=== PATIENT | female | born 1955 | race African-American/Black ===

== ENCOUNTER 2021-05-14 06:27 | Emergency (ER) | payer MEDICAID ==
[~2021-05-14] VITALS: Ht 167.6 cm; Wt 64.0 kg
[2021-05-14] MEDS ORDERED: IPRATROPIUM BROMIDE (0.02%) 0.5MG/2.5ML NEB HHN STA (07:35)
[2021-05-14] MEDS ORDERED: ALBUTEROL (0.083%) 2.5MG/3ML NEB HHN STA (07:35)
[2021-05-14] MEDS ORDERED: METHYLPREDNISOLONE SOD SUCC 125 MG/2 ML VIAL IV ONE (07:45)
[2021-05-14 08:30] LABS: BASOPHILS % 0.3 % (0.0-2.0); EOSINOPHILS % 6.9 % (0.0-5.0); HEMATOCRIT. 32.8 % (36.0-48.0); HEMOGLOBIN. 10.5 g/dL (12.0-16.0); LYMPHOCYTES % 32.9 % (20.0-50.0); MEAN CORPUSCULAR HEMOGLOBIN 21.7 pg (28.0-32.0); MEAN CORPUSCULAR VOLUME 67.5 fL (81.0-99.0); MEAN PLATELET VOLUME 9.2 fl (7.4-10.4); NEUTROPHILS % 48.9 % (40.0-76.0); PLATELET 157 x1000/uL (130-400); RED BLOOD CELL COUNT 4.86 mill/uL (4.2-5.4); RED CELL DISTRIBUTION WIDTH 19.5 % (11.6-14.6)
[2021-05-14] MEDS ORDERED: LEVOFLOXACIN 750MG PREMIX 150 ML IV ONE (08:30)
[2021-05-14 08:37] LABS: CHLORIDE 112 mEq/L (98-107)
[2021-05-14] MEDS ORDERED: POTASSIUM CHLORIDE 20MEQ TABLET SR PO NR (09:15)
[2021-05-14 09:16] LABS: PLATELET ESTIMATE NORMAL
[2021-05-14 09:28] LABS: D-DIMER 0.78 mg/L FEU (<0.50); PROTHROMBIN TIME 10.7 sec (9.6-11.0)
[2021-05-14 10:14] LABS: BG BASE EXCESS 2.2 mmol/L (-2.0-2.0); BG CARBOXYHEMOGLOBIN 0.9 % (0.5-1.5); BG FRACTION INSPIRED OXYGEN 60; BG HCO3 ACT 27.5 mmol/L (22.0-26.0); BG METHEMOGLOBIN 0.3 % (0.0-1.5); BG OXYHEMOGLOBIN 97.8 % (94.0-97.0); BG PCO2 46.2 mmHg (35.0-45.0); BG PH 7.393 (7.350-7.450); BG PO2 155.9 mmHg (75.0-100.0); BG SAMPLE SITE RIGHT RADIAL; BG TOTAL HEMOGLOBIN 10.8 g/dL (12.0-18.0); BG VENT MODE HHN
[2021-05-14] MEDS ORDERED: IOHEXOL-350 100 ML BOTTLE ONE (11:08)
[2021-05-14 11:53] VITALS: BP 132/49
== END 2021-05-14 12:10 | disposition short-term general hospital (02) ==
LOC: ER 06:27
DX: J44.1 Chronic obstructive pulmonary disease with (acute) exacerbation (principal); Z20.822 Contact with and (suspected) exposure to COVID-19; I10 Essential (primary) hypertension; E11.9 Type 2 diabetes mellitus without complications
CPT/HCPCS: 36415; 36600; 71045; 71275; 80053; 82375; 82805; 82962; 83880; 84484; 85025; 85379; 85610; 93005; 94640; 96365; 96366; 96375; 99285; C9803; J1956; J2930; Q9967; U0003; U0005; Z7610

== ENCOUNTER 2021-06-16 07:45 | Emergency (ER) | payer MEDICAID, OTHER ==
[~2021-06-16] VITALS: Ht 157.5 cm; Wt 60.0 kg
[2021-06-16 07:50] VITALS: BP 158/80
[2021-06-16] MEDS ORDERED: METHYLPREDNISOLONE SOD SUCC 125 MG/2 ML VIAL IV STA (08:31)
[2021-06-16] MEDS ORDERED: ALBUTEROL (0.083%) 2.5MG/3ML NEB HHN STA (08:31)
[2021-06-16] MEDS ORDERED: IPRATROPIUM BROMIDE (0.02%) 0.5MG/2.5ML NEB HHN STA (08:31)
[2021-06-16 08:37] LABS: BASOPHILS % 0.7 % (0.0-2.0); EOSINOPHILS % 5.4 % (0.0-5.0); HEMATOCRIT. 39.5 % (36.0-48.0); HEMOGLOBIN. 12.6 g/dL (12.0-16.0); LYMPHOCYTES % 46.6 % (20.0-50.0); MEAN CORPUSCULAR HEMOGLOBIN 22.4 pg (28.0-32.0); MEAN CORPUSCULAR VOLUME 70.4 fL (81.0-99.0); MEAN PLATELET VOLUME 9.1 fl (7.4-10.4); MONOCYTES % 9.7 % (2.0-8.0); NEUTROPHILS % 37.6 % (40.0-76.0); PLATELET 280 x1000/uL (130-400); RED BLOOD CELL COUNT 5.61 mill/uL (4.2-5.4); RED CELL DISTRIBUTION WIDTH 20.8 % (11.6-14.6)
[2021-06-16 08:45] LABS: CHLORIDE 112 mEq/L (98-107)
[2021-06-16] MEDS ORDERED: ALBU6.7H9 INH (09:13)
[2021-06-16] MEDS ORDERED: P20 MT (09:13)
== END 2021-06-16 10:39 | disposition home or self-care (01) ==
LOC: ER 07:45
DX: J44.1 Chronic obstructive pulmonary disease with (acute) exacerbation (principal); I10 Essential (primary) hypertension; E11.9 Type 2 diabetes mellitus without complications; R74.8 Abnormal levels of other serum enzymes; Z88.0 Allergy status to penicillin; Z79.899 Other long term (current) drug therapy; Z87.891 Personal history of nicotine dependence
CPT/HCPCS: 36415; 71045; 80053; 83880; 84484; 85025; 93005; 94640; 96374; 99285; J2930; Z7610

== ENCOUNTER 2021-07-09 10:21 | Emergency (ER) | payer MEDICAID, OTHER ==
[~2021-07-09] VITALS: Ht 165.1 cm; Wt 65.0 kg
[~2021-07-09 10:21] MED LIST: ALBU6.7H9 INH; P20 MT
[2021-07-09 10:56] VITALS: BP 146/68
[2021-07-09] MEDS ORDERED: ALBU6.7H9 INH (11:02)
[2021-07-09] MEDS ORDERED: ALBU05 NEB (11:02)
== END 2021-07-09 11:35 | disposition home or self-care (01) ==
LOC: ER 10:21
DX: Z76.0 Encounter for issue of repeat prescription (principal); I10 Essential (primary) hypertension; J44.9 Chronic obstructive pulmonary disease, unspecified
CPT/HCPCS: 93005; 99283

== ENCOUNTER 2021-08-03 08:39 | Emergency (ER) | payer MEDICAID ==
[~2021-08-03] VITALS: Ht 167.6 cm; Wt 54.0 kg
[~2021-08-03 08:39] MED LIST changes: +ALBU05 NEB
[2021-08-03] MEDS ORDERED: IPRATROPIUM BROMIDE (0.02%) 0.5MG/2.5ML NEB HHN ONE (09:30)
[2021-08-03] MEDS ORDERED: ALBUTEROL (0.083%) 2.5MG/3ML NEB HHN ONE (09:30)
[2021-08-03] MEDS ORDERED: PREDNISONE 20MG TABLET PO ONE (09:30)
[2021-08-03] MEDS ORDERED: ALBU6.7H9 INH (11:40)
[2021-08-03] MEDS ORDERED: P20 MT (11:40)
[2021-08-03 12:00] VITALS: BP 138/76
== END 2021-08-03 12:00 | disposition home or self-care (01) ==
LOC: ER 08:39
DX: J44.1 Chronic obstructive pulmonary disease with (acute) exacerbation (principal); Z88.0 Allergy status to penicillin; Z88.2 Allergy status to sulfonamides
CPT/HCPCS: 71045; 94640; 99283; J7512; Z7610

== ENCOUNTER 2021-08-21 08:47 | Inpatient (IN) | payer MEDICARE, MEDICAID ==
[~2021-08-21] VITALS: Ht 160 cm; Wt 62.6 kg
[2021-08-21] MEDS ORDERED: IPRATROPIUM BROMIDE (0.02%) 0.5MG/2.5ML NEB HHN STA (09:15)
[2021-08-21] MEDS ORDERED: PREDNISONE 20MG TABLET PO STA (09:15)
[2021-08-21] MEDS ORDERED: ALBUTEROL (0.083%) 2.5MG/3ML NEB HHN STA (09:15)
[2021-08-21 09:36] LABS: BASOPHILS % 0.8 % (0.0-2.0); EOSINOPHILS % 6.3 % (0.0-5.0); HEMATOCRIT. 44.4 % (36.0-48.0); HEMOGLOBIN. 13.5 g/dL (12.0-16.0); MEAN CORPUSCULAR VOLUME 72.1 fL (81.0-99.0); MONOCYTES % 10.1 % (2.0-8.0); NEUTROPHILS % 49.8 % (40.0-76.0); RED BLOOD CELL COUNT 6.15 mill/uL (4.2-5.4); RED CELL DISTRIBUTION WIDTH 19.2 % (11.6-14.6)
[2021-08-21 09:41] LABS: CHLORIDE 113 mEq/L (98-107)
[2021-08-21 09:44] LABS: PROTHROMBIN TIME 10.3 sec (9.6-11.0)
[2021-08-21] MEDS ORDERED: AZITHROMYCIN 500MG/250ML 250 ML IV NR (12:45)
[2021-08-21] MEDS ORDERED: AZITHROMYCIN 500 MG in DEXT 5% WATER 250 ML IV SCH (12:45)
[2021-08-21] MEDS ORDERED: GUAIFENESIN-DM 200MG-20MG/10ML UDC PO ONE (15:30)
[2021-08-21 21:20] VITALS: BP 151/73
[2021-08-22 00:13] VITALS: BP 150/65
[2021-08-22 04:00] VITALS: BP 137/67
[2021-08-22] MEDS ORDERED: ACETAMINOPHEN 325MG TABLET PO PRN ×3 (05:15→07:45)
[2021-08-22] MEDS ORDERED: CLONIDINE 0.1MG TABLET PO PRN (05:15)
[2021-08-22] MEDS: METHYLPREDNISOLONE SOD SUCC 125 MG/2 ML VIAL IV SCH ×4 (05:36→23:52)
[2021-08-22] MEDS: GUAIFENESIN 200MG/10ML SUGAR FREE UDC PO PRN ×3 (05:41→19:03)
[2021-08-22] MEDS ORDERED: PANTOPRAZOLE 40MG DR TABLET PO SCH (07:20)
[2021-08-22] MEDS ORDERED: DOCUSATE SODIUM 100MG CAPSULE PO PRN (07:45)
[2021-08-22] MEDS ORDERED: ZOLPIDEM TARTRATE 5MG TABLET PO PRN (07:45)
[2021-08-22] MEDS ORDERED: ONDANSETRON HCL 4MG/2ML INJ IV PRN (07:45)
[2021-08-22] MEDS ORDERED: ENOXAPARIN 40MG/0.4ML SYR SUBCUT SCH (07:45)
[2021-08-22] MEDS ORDERED: NITROGLYCERIN 0.4MG TABLET SL SL PRN (07:45)
[2021-08-22 08:00] VITALS: BP 135/78
[2021-08-22] MEDS: ASPIRIN 325MG EC TABLET PO SCH (09:41)
[2021-08-22] MEDS: ZINC SULFATE 220 MG ( 50 ) CAPSULE PO SCH (09:41)
[2021-08-22] MEDS: ASCORBIC ACID 500 MG TABLET PO SCH ×2 (09:42→20:31)
[2021-08-22] MEDS: FAMOTIDINE 20MG TABLET PO SCH ×2 (09:42→20:31)
[2021-08-22] MEDS: LEVOFLOXACIN 500MG TABLET PO SCH (09:42)
[2021-08-22] MEDS: ENOXAPARIN 40MG/0.4ML SYR SUBCUT SCH (09:47)
[2021-08-22 11:45] LABS: *AMPHETAMINES SCREEN URINE NEGATIVE (NEGATIVE); *BARBITURATES SCREEN URINE NEGATIVE (NEGATIVE); *BENZODIAZEPINES SCREEN URINE NEGATIVE (NEGATIVE); *COCAINE SCREEN URINE PRESUMTIVE POSITIVE (NEGATIVE); METHADONE URINE SCREEN NEGATIVE (NEGATIVE); OPIATES URINE SCREEN NEGATIVE (NEGATIVE)
[2021-08-22 11:46] LABS: CANNABINOID URINE SCREEN NEGATIVE (NEGATIVE); PHENCYCLIDINE URINE SCREEN NEGATIVE (NEGATIVE)
[2021-08-22 12:16] VITALS: BP 147/74
[2021-08-22 16:00] VITALS: BP 140/66
[2021-08-22] MEDS: IPRATROPIUM/ALBUTEROL 0.5-3(2.5)MG/3ML NEB HHN SCH ×2 (16:13→21:23)
[2021-08-22 16:44] LABS: CREATINE KINASE 32 IU/L (26-192)
[2021-08-22 16:51] LABS: CREATINE KINASE MB FRACTION 2.8 ng/mL (0.5-3.6)
[2021-08-22 20:00] VITALS: BP 144/65
[2021-08-22] MEDS: THROAT LOZENGES-BENZOCAINE/MENTH/CETYLPYRD CL LOZENGES MM PRN (23:53)
[2021-08-23] VITALS (7 sets, daily range): BP systolic 120–159; BP diastolic 52–83
[2021-08-23] MEDS: IPRATROPIUM/ALBUTEROL 0.5-3(2.5)MG/3ML NEB HHN SCH ×6 (00:30→21:09)
[2021-08-23] MEDS: GUAIFENESIN 200MG/10ML SUGAR FREE UDC PO PRN ×3 (02:20→17:10)
[2021-08-23 02:22] LABS: CREATINE KINASE 24 IU/L (26-192); CREATINE KINASE MB FRACTION 2.2 ng/mL (0.5-3.6)
[2021-08-23] MEDS: METHYLPREDNISOLONE SOD SUCC 125 MG/2 ML VIAL IV SCH ×3 (05:55→17:18)
[2021-08-23] MEDS: THROAT LOZENGES-BENZOCAINE/MENTH/CETYLPYRD CL LOZENGES MM PRN ×2 (06:30→17:10)
[2021-08-23 06:55] LABS: BASOPHILS % 0.3 % (0.0-2.0); HEMATOCRIT. 41.4 % (36.0-48.0); HEMOGLOBIN. 12.8 g/dL (12.0-16.0); LYMPHOCYTES % 7.9 % (20.0-50.0); MEAN CORPUSCULAR HEMOGLOBIN 22.1 pg (28.0-32.0); MEAN CORPUSCULAR VOLUME 71.2 fL (81.0-99.0); MEAN PLATELET VOLUME 9.8 fl (7.4-10.4); MONOCYTES % 2.8 % (2.0-8.0); PLATELET 250 x1000/uL (130-400); RED BLOOD CELL COUNT 5.81 mill/uL (4.2-5.4); RED CELL DISTRIBUTION WIDTH 19.2 % (11.6-14.6)
[2021-08-23 07:22] LABS: PHOSPHORUS 3.6 mg/dL (2.5-4.9)
[2021-08-23] MEDS: ENOXAPARIN 40MG/0.4ML SYR SUBCUT SCH (09:16)
[2021-08-23] MEDS: LEVOFLOXACIN 500MG TABLET PO SCH (09:16)
[2021-08-23] MEDS: ZINC SULFATE 220 MG ( 50 ) CAPSULE PO SCH (09:16)
[2021-08-23] MEDS: FAMOTIDINE 20MG TABLET PO SCH (09:16)
[2021-08-23] MEDS: ASCORBIC ACID 500 MG TABLET PO SCH ×2 (09:16→20:46)
[2021-08-23] MEDS: ASPIRIN 325MG EC TABLET PO SCH (09:16)
[2021-08-23] MEDS: MAGNESIUM/ALUMINUM HYDROXIDE/SIMETHICONE 30ML UDC PO PRN (20:46)
[2021-08-23] MEDS: KETOROLAC 15MG/ML VIAL IV PRN (20:48)
[2021-08-24] MEDS: METHYLPREDNISOLONE SOD SUCC 125 MG/2 ML VIAL IV SCH ×4 (00:49→16:50)
[2021-08-24] MEDS: IPRATROPIUM/ALBUTEROL 0.5-3(2.5)MG/3ML NEB HHN SCH ×6 (00:54→20:05)
[2021-08-24] MEDS: MAGNESIUM/ALUMINUM HYDROXIDE/SIMETHICONE 30ML UDC PO PRN ×3 (01:40→18:32)
[2021-08-24 04:00] VITALS: BP 167/73
[2021-08-24] MEDS: CLONIDINE 0.1MG TABLET PO PRN ×2 (05:23→16:51)
[2021-08-24] MEDS: KETOROLAC 15MG/ML VIAL IV PRN ×3 (06:23→19:46)
[2021-08-24 08:00] VITALS: BP 140/54
[2021-08-24] MEDS: ASCORBIC ACID 500 MG TABLET PO SCH ×2 (08:24→21:35)
[2021-08-24] MEDS: ENOXAPARIN 40MG/0.4ML SYR SUBCUT SCH (08:24)
[2021-08-24] MEDS: ZINC SULFATE 220 MG ( 50 ) CAPSULE PO SCH (08:24)
[2021-08-24] MEDS: FAMOTIDINE 20MG TABLET PO SCH (08:24)
[2021-08-24] MEDS: LEVOFLOXACIN 500MG TABLET PO SCH (08:24)
[2021-08-24] MEDS: ASPIRIN 325MG EC TABLET PO SCH (08:24)
[2021-08-24 12:00] VITALS: BP 135/68
[2021-08-24 16:00] VITALS: BP 165/89
[2021-08-24] MEDS: TRAMADOL 50MG TABLET PO PRN ×2 (16:43→18:32)
[2021-08-24 19:41] VITALS: BP 160/66
[2021-08-25] VITALS: BP 128/62
[2021-08-25] MEDS: IPRATROPIUM/ALBUTEROL 0.5-3(2.5)MG/3ML NEB HHN SCH ×4 (00:02→12:36)
[2021-08-25] MEDS: METHYLPREDNISOLONE SOD SUCC 125 MG/2 ML VIAL IV SCH ×2 (00:59→06:29)
[2021-08-25] MEDS: TRAMADOL 50MG TABLET PO PRN ×3 (01:06→11:31)
[2021-08-25 01:19] LABS: FOLIC ACID (FOLATE) SERUM 10.5 ng/mL (>5.38)
[2021-08-25 04:00] VITALS: BP 110/51
[2021-08-25] MEDS: KETOROLAC 15MG/ML VIAL IV PRN ×2 (06:29→13:06)
[2021-08-25] MEDS: MAGNESIUM/ALUMINUM HYDROXIDE/SIMETHICONE 30ML UDC PO PRN ×2 (06:34→13:18)
[2021-08-25 08:00] VITALS: BP 157/64
[2021-08-25] MEDS: ASPIRIN 325MG EC TABLET PO SCH (09:02)
[2021-08-25] MEDS: FAMOTIDINE 20MG TABLET PO SCH (09:02)
[2021-08-25] MEDS: ASCORBIC ACID 500 MG TABLET PO SCH (09:02)
[2021-08-25] MEDS: ZINC SULFATE 220 MG ( 50 ) CAPSULE PO SCH (09:02)
[2021-08-25] MEDS: LEVOFLOXACIN 500MG TABLET PO SCH (09:02)
[2021-08-25] MEDS: ENOXAPARIN 40MG/0.4ML SYR SUBCUT SCH (09:04)
[2021-08-25 11:11] VITALS: BP 157/64
[2021-08-25] MEDS: THROAT LOZENGES-BENZOCAINE/MENTH/CETYLPYRD CL LOZENGES MM PRN (11:28)
[2021-08-25] MEDS: GUAIFENESIN 200MG/10ML SUGAR FREE UDC PO PRN (11:28)
== END 2021-08-25 14:53 | disposition home or self-care (01) | DRG 189 ==
LOC: ER 08:47 → EDBEDREQTM 14:15 → EDBEDREQ 14:15 → ENRESERV 20:41 → 6WST 21:17
PROVIDERS: ADMIT Internal Medicine; ATTEND Internal Medicine
DX: J96.01 Acute respiratory failure with hypoxia (principal); J44.1 Chronic obstructive pulmonary disease with (acute) exacerbation; E44.0 Moderate protein-calorie malnutrition; N18.9 Chronic kidney disease, unspecified; F17.210 Nicotine dependence, cigarettes, uncomplicated; Z20.822 Contact with and (suspected) exposure to COVID-19; Z88.0 Allergy status to penicillin; Z88.2 Allergy status to sulfonamides; Z88.8 Allergy status to other drugs, medicaments and biological substances; Z79.899 Other long term (current) drug therapy; Z79.51 Long term (current) use of inhaled steroids; Z68.24 Body mass index [BMI] 24.0-24.9, adult
CPT/HCPCS: 36415; 71045; 80053; 80061; 80305; 82550; 82553; 82607; 82728; 82746; 83036; 83540; 83550; 83735; 84100; 84484; 85025; 87426; 93005; 93306; 93970; 94640; 94644; 97161; 97166; 99285; J0456; J1650; J1885; J2405; J2930; J7060; J7512

== ENCOUNTER 2021-08-28 02:25 | Emergency (ER) | payer MEDICARE, MEDICAID ==
[~2021-08-28] VITALS: Ht 167.6 cm; Wt 50.0 kg
[2021-08-28] MEDS ORDERED: ONDANSETRON HCL 4MG/2ML INJ IV STA (03:01)
[2021-08-28] MEDS ORDERED: MAGNESIUM/ALUMINUM HYDROXIDE/SIMETHICONE 30ML UDC PO STA (03:01)
[2021-08-28] MEDS ORDERED: FAMOTIDINE 20MG/2ML VIAL IV STA (03:01)
[2021-08-28] MEDS ORDERED: SODIUM CHLORIDE 0.9% 1,000 ML IV ONE (03:15)
[2021-08-28 03:45] LABS: BASOPHILS % 0.4 % (0.0-2.0); EOSINOPHILS % 0.4 % (0.0-5.0); HEMATOCRIT. 46.9 % (36.0-48.0); HEMOGLOBIN. 14.8 g/dL (12.0-16.0); LYMPHOCYTES % 14.6 % (20.0-50.0); MEAN CORPUSCULAR HEMOGLOBIN 22.3 pg (28.0-32.0); MEAN CORPUSCULAR VOLUME 70.3 fL (81.0-99.0); MEAN PLATELET VOLUME 9.3 fl (7.4-10.4); MONOCYTES % 4.8 % (2.0-8.0); NEUTROPHILS % 79.8 % (40.0-76.0); PLATELET 300 x1000/uL (130-400); RED BLOOD CELL COUNT 6.66 mill/uL (4.2-5.4); RED CELL DISTRIBUTION WIDTH 19.9 % (11.6-14.6)
[2021-08-28 03:54] LABS: CLARITY URINE CLEAR (CLEAR); COLOR URINE YELLOW (YELLOW); KETONES URINE NEGATIVE (NEGATIVE); LEUKOCYTE ESTERASE URINE NEGATIVE (NEGATIVE); NITRITE URINE NEGATIVE (NEGATIVE); OCCULT BLOOD URINE NEGATIVE (NEGATIVE); PROTEIN URINE TRACE (NEGATIVE); SPECIFIC GRAVITY URINE 1.028 (1.005-1.030)
[2021-08-28 03:56] LABS: CHLORIDE 103 mEq/L (98-107)
[2021-08-28 04:00] LABS: PROTHROMBIN TIME 10.3 sec (9.6-11.0)
[2021-08-28] MEDS ORDERED: TOPUD MT (06:27)
[2021-08-28] MEDS ORDERED: FAMO-135 MT (06:27)
[2021-08-28 06:40] VITALS: BP 133/72
== END 2021-08-28 06:41 | disposition home or self-care (01) ==
LOC: ER 02:44
DX: K29.00 Acute gastritis without bleeding (principal); J44.1 Chronic obstructive pulmonary disease with (acute) exacerbation; Z88.0 Allergy status to penicillin; Z88.2 Allergy status to sulfonamides
CPT/HCPCS: 36415; 74176; 80053; 81003; 83690; 85025; 85610; 93005; 96361; 96374; 96375; 99285; J2405; J3490; J7030

== ENCOUNTER 2021-09-19 09:11 | Emergency (ER) | payer MEDICARE, MEDICAID ==
[~2021-09-19] VITALS: Ht 167.6 cm; Wt 70.0 kg
[~2021-09-19 09:11] MED LIST changes: +FAMO-135 MT; +TOPUD MT
[2021-09-19] MEDS ORDERED: METHYLPREDNISOLONE SOD SUCC 125 MG/2 ML VIAL IV STA (09:29)
[2021-09-19] MEDS ORDERED: IPRATROPIUM BROMIDE (0.02%) 0.5MG/2.5ML NEB HHN STA (09:29)
[2021-09-19] MEDS ORDERED: ALBUTEROL (0.083%) 2.5MG/3ML NEB HHN STA (09:29)
[2021-09-19] MEDS ORDERED: MAGNESIUM 2 G PREMIX 50 ML IV STA (09:29)
[2021-09-19 09:52] LABS: CHLORIDE 113 mEq/L (98-107)
[2021-09-19 10:00] LABS: HEMATOCRIT. 38.5 % (36.0-48.0); HEMOGLOBIN. 11.7 g/dL (12.0-16.0); MEAN CORPUSCULAR HEMOGLOBIN 21.9 pg (28.0-32.0); MEAN CORPUSCULAR VOLUME 72.3 fL (81.0-99.0); MEAN PLATELET VOLUME 8.9 fl (7.4-10.4); PLATELET 248 x1000/uL (130-400); RED BLOOD CELL COUNT 5.32 mill/uL (4.2-5.4); RED CELL DISTRIBUTION WIDTH 19.8 % (11.6-14.6)
[2021-09-19 10:23] LABS: PLATELET ESTIMATE NORMAL
[2021-09-19] MEDS ORDERED: ALBU05 NEB (10:42)
[2021-09-19] MEDS ORDERED: P50 PO (10:42)
[2021-09-19] MEDS ORDERED: ALBU6.7H9 INH (10:42)
[2021-09-19 12:30] VITALS: BP 118/67
== END 2021-09-19 12:42 | disposition home or self-care (01) ==
LOC: ER 09:29
DX: J44.1 Chronic obstructive pulmonary disease with (acute) exacerbation (principal); D64.9 Anemia, unspecified; Z79.51 Long term (current) use of inhaled steroids; Z88.0 Allergy status to penicillin; Z88.8 Allergy status to other drugs, medicaments and biological substances; Z79.899 Other long term (current) drug therapy
CPT/HCPCS: 36415; 71045; 80053; 83880; 84484; 85025; 93005; 94644; 96365; 96375; 99285; J2930; J3475

== ENCOUNTER 2023-03-20 20:52 | Emergency (ER) | payer BC, MEDICAID ==
[~2023-03-20] VITALS: Ht 165.1 cm; Wt 64.0 kg
[~2023-03-20 20:52] MED LIST changes: +ALBU6.7H3 INH; -ALBU6.7H9 INH; +P50 PO
[2023-03-20 22:01] LABS: CHLORIDE 109 mEq/L (98-107)
[2023-03-20 22:52] LABS: BASOPHILS % 0.4 % (0.0-2.0); EOSINOPHILS % 7.7 % (0.0-5.0); HEMATOCRIT. 30.6 % (36.0-48.0); HEMOGLOBIN. 8.8 g/dL (12.0-16.0); LYMPHOCYTES % 44.7 % (20.0-50.0); MEAN CORPUSCULAR VOLUME 72.8 fL (81.0-99.0); MEAN PLATELET VOLUME 9.2 fl (7.4-10.4); MONOCYTES % 11.9 % (2.0-8.0); NEUTROPHILS % 35.3 % (40.0-76.0); PLATELET 189 x1000/uL (130-400); RED CELL DISTRIBUTION WIDTH 21.2 % (11.6-14.6)
[2023-03-20] MEDS ORDERED: ALBUTEROL (0.083%) 2.5MG/3ML NEB HHN STA (23:27)
[2023-03-20] MEDS ORDERED: PREDNISONE 20MG TABLET PO STA (23:27)
[2023-03-20] MEDS ORDERED: IPRATROPIUM BROMIDE (0.02%) 0.5MG/2.5ML NEB HHN STA (23:27)
[2023-03-21] MEDS ORDERED: ALBUTEROL (0.083%) 2.5MG/3ML NEB HHN STA (05:32)
[2023-03-21] MEDS ORDERED: IPRATROPIUM BROMIDE (0.02%) 0.5MG/2.5ML NEB HHN STA (05:32)
[2023-03-21 08:09] VITALS: BP 131/59
== END 2023-03-21 08:31 | disposition short-term general hospital (02) ==
LOC: ER 20:52 → EDBEDREQSVC 03-21 04:51 → ER 03-21 08:31
DX: J44.1 Chronic obstructive pulmonary disease with (acute) exacerbation (principal)
CPT/HCPCS: 36415; 71045; 80053; 83880; 84484; 85025; 93005; 94640; 94644; 99285; J7512

== ENCOUNTER 2024-04-26 09:02 | Inpatient (IN) | payer MEDICARE ==
[~2024-04-26] VITALS: Ht 154.9 cm; Wt 50.1 kg
[~2024-04-26 09:02] MED LIST changes: +DIVA-75 PO; -FAMO-135 MT; +OLAN5TAB74 PO; -P20 MT; +P20 PO; -P50 PO; +PROT40 MT
[2024-04-26 09:30] VITALS: PULSE 65; PULSE 75; RESP 22
[2024-04-26] MEDS: IPRATROPIUM BROMIDE (0.02%) 0.5MG/2.5ML NEB HHN STA (09:30)
[2024-04-26] MEDS: ALBUTEROL (0.083%) 2.5MG/3ML NEB HHN STA (09:30)
[2024-04-26 09:31] LABS: BASOPHILS % 1.2 % (0.0-2.0); EOSINOPHILS % 3.2 % (0.0-5.0); HEMATOCRIT. 30.5 % (36.0-48.0); HEMOGLOBIN. 9.2 g/dL (12.0-16.0); LYMPHOCYTES % 23.7 % (20.0-50.0); MEAN CORPUSCULAR HEMOGLOBIN 20.5 pg (28.0-32.0); MEAN CORPUSCULAR HGB CONC 30.3 g/dL (31.0-37.0); MEAN CORPUSCULAR VOLUME 67.5 fL (81.0-99.0); MEAN PLATELET VOLUME 8.9 fl (7.4-10.4); MONOCYTES % 7.6 % (2.0-8.0); NEUTROPHILS % 64.3 % (40.0-76.0); PLATELET 474 x1000/uL (130-400); RED BLOOD CELL COUNT 4.51 mill/uL (4.2-5.4); RED CELL DISTRIBUTION WIDTH 26.1 % (11.6-14.6); WHITE BLOOD COUNT 6.8 x1000/uL (4.5-11.0)
[2024-04-26 09:37] LABS: CHLORIDE 107 mEq/L (98-107); POTASSIUM 3.3 mEq/L (3.5-5.1); SODIUM 142 mEq/L (136-145)
[2024-04-26 09:38] LABS: CARBON DIOXIDE 27 mEq/L (21-32)
[2024-04-26 09:39] LABS: CALCIUM 9.2 mg/dL (8.7-10.4)
[2024-04-26 09:42] LABS: ADD RBC MORPHOLOGY YES; DIFFERENTIAL COMMENT 1
[2024-04-26 09:43] LABS: CREATININE 0.7 mg/dL (0.6-1.0); GLUCOSE 85 mg/dL (70-105); UREA NITROGEN BLOOD 16 mg/dL (9-23)
[2024-04-26 09:56] LABS: TROPONIN I HIGH SENSITIVITY < 4 ng/L (3.0-34)
[2024-04-26 10:20] LABS: ANISOCYTOSIS 3+; HYPOCHROMASIA 1+; MICROCYTOSIS 2+; PLATELET ESTIMATE INCREASED
[2024-04-26] MEDS: METHYLPREDNISOLONE SOD SUCC 125MG/2ML (ACT-O-VIAL) IV STA (10:29)
[2024-04-26] MEDS: MAGNESIUM 2 G PREMIX 50 ML IV STA (10:30)
[2024-04-26] MEDS: LEVOFLOXACIN 750MG PREMIX 150 ML IV ONE (11:15)
[2024-04-26] MEDS ORDERED: LEVOFLOXACIN 500MG PREMIX 100 ML IV SCH (13:15)
[2024-04-26] MEDS ORDERED: ONDANSETRON HCL 4MG/2ML INJ IV PRN (13:15)
[2024-04-26] MEDS ORDERED: ZOLPIDEM TARTRATE 5MG TABLET PO PRN (13:15)
[2024-04-26] MEDS: SODIUM CHLORIDE 0.9% 1,000 ML IV SCH (13:15)
[2024-04-26] MEDS ORDERED: MAGNESIUM/ALUMINUM HYDROXIDE/SIMETHICONE 30ML UDC PO PRN (13:15)
[2024-04-26] MEDS ORDERED: DOCUSATE SODIUM 100MG CAPSULE PO PRN (13:15)
[2024-04-26] MEDS ORDERED: CLONIDINE 0.1MG TABLET PO PRN (13:15)
[2024-04-26] MEDS: METHYLPREDNISOLONE SOD SUCC 500 MG in DEXT 5% WATER 100 ML IV SCH (14:00)
[2024-04-26] MEDS: LEVOFLOXACIN 500MG PREMIX 100 ML IV SCH (14:00)
[2024-04-26 17:30] VITALS: PULSE 88; RESP 33; O2SAT 100
[2024-04-26] MEDS: IPRATROPIUM/ALBUTEROL 0.5-3(2.5)MG/3ML NEB HHN SCH (17:30)
[2024-04-26] MEDS ORDERED: METHYLPREDNISOLONE SOD SUCC 40MG/ML (ACT-O-VIAL) IV NR (18:30)
[2024-04-26 20:16] VITALS: PULSE 104; RESP 22; O2SAT 97
[2024-04-26] MEDS: ALBUTEROL (0.083%) 2.5MG/3ML NEB HHN NR (20:16)
[2024-04-27] VITALS (10 sets, daily range): BP systolic 97–133; BP diastolic 46–93; PULSE 68–96; RESP 15–20; TEMP 97.6–99; O2SAT 97–98
[2024-04-27] MEDS: LORAZEPAM 0.5MG TABLET PO PRN (03:25)
[2024-04-27] MEDS: ACETAMINOPHEN 325MG TABLET PO PRN (03:25)
[2024-04-27] MEDS: GUAIFENESIN 200MG/10ML SUGAR FREE UDC PO PRN (04:08)
[2024-04-27 08:35] LABS: BASOPHILS % 1.1 % (0.0-2.0); EOSINOPHILS % 0.7 % (0.0-5.0); HEMATOCRIT. 28.1 % (36.0-48.0); HEMOGLOBIN. 8.4 g/dL (12.0-16.0); LYMPHOCYTES % 7.4 % (20.0-50.0); MEAN CORPUSCULAR HEMOGLOBIN 20.2 pg (28.0-32.0); MEAN CORPUSCULAR HGB CONC 29.8 g/dL (31.0-37.0); MEAN CORPUSCULAR VOLUME 67.6 fL (81.0-99.0); MEAN PLATELET VOLUME 8.9 fl (7.4-10.4); MONOCYTES % 8.9 % (2.0-8.0); NEUTROPHILS % 81.9 % (40.0-76.0); PLATELET 390 x1000/uL (130-400); RED BLOOD CELL COUNT 4.16 mill/uL (4.2-5.4); RED CELL DISTRIBUTION WIDTH 25.8 % (11.6-14.6)
[2024-04-27 08:38] LABS: DIFFERENTIAL COMMENT 1
[2024-04-27] MEDS: PANTOPRAZOLE 40MG DR TABLET PO SCH (08:48)
[2024-04-27] MEDS: OLANZAPINE 5MG TABLET PO SCH (08:48)
[2024-04-27] MEDS: PREDNISONE 20MG TABLET PO SCH (08:48)
[2024-04-27 08:49] LABS: CHLORIDE 107 mEq/L (98-107); SODIUM 141 mEq/L (136-145)
[2024-04-27 08:50] LABS: CALCIUM 9.1 mg/dL (8.7-10.4); CARBON DIOXIDE 27 mEq/L (21-32)
[2024-04-27 08:55] LABS: CREATININE 0.6 mg/dL (0.6-1.0); GLUCOSE 114 mg/dL (70-105); UREA NITROGEN BLOOD 12 mg/dL (9-23)
[2024-04-27 09:13] LABS: HEPATITIS B SURFACE ANTIGEN NEGATIVE (Negative)
[2024-04-27 09:34] LABS: HEPATITIS C AB NON REACTIVE (Neg) (Negative)
[2024-04-27] MEDS: LEVOFLOXACIN 250MG PREMIX 50 ML IV SCH (15:16)
[2024-04-27] MEDS: METHYLPREDNISOLONE SOD SUCC 500 MG in DEXT 5% WATER 100 ML IV SCH (17:31)
[2024-04-28] VITALS (7 sets, daily range): BP systolic 91–138; BP diastolic 45–58; PULSE 62–85; RESP 16–22; TEMP 97.2–98.6; O2SAT 96–97
[2024-04-29] MEDS ORDERED: LEVOFLOXACIN 500MG PREMIX 100 ML IV SCH (11:00)
[2024-04-29] MEDS ORDERED: LEVOFLOXACIN 250MG PREMIX 50 ML IV SCH (12:00)
== END 2024-04-28 14:49 | disposition home or self-care (01) | DRG 190 ==
LOC: ER 09:02 → 5WST 11:05 → EDBEDREQ 11:10 → EDBEDREQTM 11:10 → EDBEDREQSVC 23:15 → 6EST 04-27 02:30
PROVIDERS: ADMIT Internal Medicine; ATTEND Internal Medicine
DX: J44.1 Chronic obstructive pulmonary disease with (acute) exacerbation (principal); J96.01 Acute respiratory failure with hypoxia; F17.210 Nicotine dependence, cigarettes, uncomplicated; Z20.822 Contact with and (suspected) exposure to COVID-19; I10 Essential (primary) hypertension; Z79.899 Other long term (current) drug therapy; Z88.0 Allergy status to penicillin; Z88.2 Allergy status to sulfonamides; Z88.3 Allergy status to other anti-infective agents
CPT/HCPCS: 36415; 71045; 80048; 83880; 84484; 85025; 86705; 87340; 87426; 93005; 94002; 94640; 97161; 99285; J1956; J2919; J2930; J3475; J7060; J7512

== ENCOUNTER 2024-09-12 16:49 | Inpatient (IN) | payer BC, MEDICARE ==
[~2024-09-12] VITALS: Ht 154.9 cm; Wt 49.1 kg
[~2024-09-12 16:49] MED LIST changes: -ALBU05 NEB; -ALBU6.7H3 INH; -DIVA-75 PO; +FERR325T6 MT; +LEVO-65 MT; +METH-371 MT; -OLAN5TAB74 PO; -P20 PO; -PROT40 MT
[2024-09-12 17:00] VITALS: PULSE 102; RESP 22; O2SAT 100
[2024-09-12] MEDS: IPRATROPIUM BROMIDE (0.02%) 0.5MG/2.5ML NEB HHN STA (17:00)
[2024-09-12] MEDS: ALBUTEROL (0.083%) 2.5MG/3ML NEB HHN STA (17:00)
[2024-09-12] MEDS: METHYLPREDNISOLONE SOD SUCC 125MG/2ML (ACT-O-VIAL) IV STA (17:07)
[2024-09-12 17:21] LABS: HEMATOCRIT. 30.1 % (36.0-48.0); HEMOGLOBIN. 8.7 g/dL (12.0-16.0); MEAN CORPUSCULAR HEMOGLOBIN 18.1 pg (28.0-32.0); MEAN CORPUSCULAR VOLUME 62.5 fL (81.0-99.0); MEAN PLATELET VOLUME 9.4 fl (7.4-10.4); PLATELET 254 x1000/uL (130-400); RED BLOOD CELL COUNT 4.81 mill/uL (4.2-5.4); RED CELL DISTRIBUTION WIDTH 21.9 % (11.6-14.6); WHITE BLOOD COUNT 3.7 x1000/uL (4.5-11.0)
[2024-09-12 17:24] LABS: DIFFERENTIAL COMMENT 1
[2024-09-12 17:32] LABS: INR 0.9; PROTHROMBIN TIME 10.3 sec (9.6-11.0)
[2024-09-12 17:35] LABS: CHLORIDE 112 mEq/L (98-107); POTASSIUM 3.8 mEq/L (3.5-5.1); SODIUM 146 mEq/L (136-145)
[2024-09-12 17:36] LABS: CALCIUM 9.4 mg/dL (8.7-10.4); CARBON DIOXIDE 27 mEq/L (21-32)
[2024-09-12 17:41] LABS: CREATININE 0.5 mg/dL (0.6-1.0); GLUCOSE 141 mg/dL (70-105); UREA NITROGEN BLOOD 9 mg/dL (9-23)
[2024-09-12 17:42] LABS: TROPONIN I HIGH SENSITIVITY 11 ng/L (3.0-34)
[2024-09-12 18:13] LABS: ANISOCYTOSIS 2+; HYPOCHROMASIA 3+; MICROCYTOSIS 3+; PLATELET ESTIMATE NORMAL
[2024-09-12] MEDS ORDERED: ACETAMINOPHEN 325MG TABLET PO PRN ×2 (20:45)
[2024-09-12] MEDS ORDERED: ONDANSETRON HCL 4MG/2ML INJ IV PRN (20:45)
[2024-09-12] MEDS ORDERED: GUAIFENESIN 200MG/10ML SUGAR FREE UDC PO PRN (20:45)
[2024-09-12] MEDS ORDERED: DOCUSATE SODIUM 100MG CAPSULE PO PRN (20:45)
[2024-09-12] MEDS ORDERED: IPRATROPIUM/ALBUTEROL 0.5-3(2.5)MG/3ML NEB HHN PRN (21:00)
[2024-09-12] MEDS: SODIUM CHLORIDE 0.9% 1,000 ML IV SCH (21:19)
[2024-09-13] VITALS (7 sets, daily range): BP systolic 140–150; BP diastolic 63–78; PULSE 61–100; RESP 16–33; TEMP 36.78072–37.00296; O2SAT 94–100
[2024-09-13 00:49] LABS: TROPONIN I HIGH SENSITIVITY 9 ng/L (3.0-34)
[2024-09-13] MEDS: CEFTRIAXONE 1GM/50ML 50 ML IV SCH (05:27)
[2024-09-13 08:45] LABS: FERRITIN 7 ng/mL (10-291); FOLIC ACID (FOLATE) SERUM 11.95 ng/mL (>5.38); VITAMIN B12 SERUM 749 pg/mL (211-911)
[2024-09-13] MEDS: PREDNISONE 20MG TABLET PO SCH (08:50)
[2024-09-13] MEDS: FERROUS SULFATE 325MG TABLET PO SCH (08:50)
[2024-09-13] MEDS: AZITHROMYCIN 500 MG TABLET PO SCH (08:50)
[2024-09-13 08:57] LABS: BASOPHILS % 0.2 % (0.0-2.0); EOSINOPHILS % 0.2 % (0.0-5.0); HEMOGLOBIN. 8.1 g/dL (12.0-16.0); LYMPHOCYTES % 21.6 % (20.0-50.0); MEAN CORPUSCULAR HEMOGLOBIN 17.8 pg (28.0-32.0); MEAN CORPUSCULAR HGB CONC 28.9 g/dL (31.0-37.0); MEAN CORPUSCULAR VOLUME 61.6 fL (81.0-99.0); MEAN PLATELET VOLUME 9.3 fl (7.4-10.4); MONOCYTES % 11.3 % (2.0-8.0); NEUTROPHILS % 66.7 % (40.0-76.0); PLATELET 213 x1000/uL (130-400); RED BLOOD CELL COUNT 4.55 mill/uL (4.2-5.4); RED CELL DISTRIBUTION WIDTH 22.1 % (11.6-14.6); WHITE BLOOD COUNT 4.5 x1000/uL (4.5-11.0)
[2024-09-13 09:00] LABS: CARBON DIOXIDE 26 mEq/L (21-32); CHLORIDE 111 mEq/L (98-107); POTASSIUM 4.4 mEq/L (3.5-5.1); SODIUM 142 mEq/L (136-145)
[2024-09-13 09:01] LABS: CALCIUM 9.9 mg/dL (8.7-10.4)
[2024-09-13 09:02] LABS: DIFFERENTIAL COMMENT 1
[2024-09-13 09:04] LABS: CREATININE 0.4 mg/dL (0.6-1.0)
[2024-09-13 09:05] LABS: IRON 14 ug/dL (50-170); T4 FREE 3.18 ng/dL (0.89-1.76); THYROID STIMULATING HORMONE < 0.10 uIU/mL (0.55-4.78)
[2024-09-13 09:06] LABS: GLUCOSE 125 mg/dL (70-105); UREA NITROGEN BLOOD 12 mg/dL (9-23)
[2024-09-13 09:08] LABS: TOTAL IRON BINDING CAPACITY 255 ug/dl (250-425)
[2024-09-13] MEDS: IPRATROPIUM/ALBUTEROL 0.5-3(2.5)MG/3ML NEB HHN SCH (10:43)
[2024-09-13] MEDS: CLONIDINE 0.1MG TABLET PO PRN (12:46)
[2024-09-13] MEDS: ENOXAPARIN 40MG/0.4ML SYR SUBCUT SCH (20:57)
[2024-09-13] MEDS: AMLODIPINE 2.5MG TABLET PO SCH (20:57)
[2024-09-14] VITALS (13 sets, daily range): BP systolic 113–150; BP diastolic 51–87; PULSE 81–116; RESP 14–26; TEMP 36.50292–36.89184; O2SAT 99–100
[2024-09-14] MEDS: FAMOTIDINE 20MG TABLET PO SCH (05:56)
[2024-09-14 06:46] LABS: CHLORIDE 112 mEq/L (98-107); POTASSIUM 4.1 mEq/L (3.5-5.1); SODIUM 145 mEq/L (136-145)
[2024-09-14 06:47] LABS: CALCIUM 9.1 mg/dL (8.7-10.4); CARBON DIOXIDE 26 mEq/L (21-32)
[2024-09-14 06:52] LABS: CREATININE 0.5 mg/dL (0.6-1.0); GLUCOSE 105 mg/dL (70-105); UREA NITROGEN BLOOD 19 mg/dL (9-23)
[2024-09-14 06:55] LABS: T4 FREE 3.04 ng/dL (0.89-1.76)
[2024-09-14 06:56] LABS: HEMOGLOBIN 7.8 g/dL (12.0-16.0); MEAN CORPUSCULAR HEMOGLOBIN 17.7 pg (28.0-32.0); MEAN CORPUSCULAR HGB CONC 28.7 g/dL (31.0-37.0); MEAN CORPUSCULAR VOLUME 61.9 fL (81.0-99.0); PLATELET 199 x1000/uL (130-400); RED BLOOD CELL COUNT 4.37 mill/uL (4.2-5.4); THYROID STIMULATING HORMONE < 0.10 uIU/mL (0.55-4.78); WHITE BLOOD COUNT 7.4 x1000/uL (4.5-11.0)
[2024-09-14] MEDS: MAGNESIUM/ALUMINUM HYDROXIDE/SIMETHICONE 30ML UDC PO PRN (12:06)
[2024-09-14] MEDS: METHIMAZOLE 5MG TABLET PO SCH (12:06)
[2024-09-14] MEDS ORDERED: ONDANSETRON HCL 4MG TABLET PO PRN (18:45)
[2024-09-14 20:53] LABS: BG BASE EXCESS -2.2 mmol/L (-2.0-3.0); BG CARBOXYHEMOGLOBIN 0.8 % (0.5-1.5); BG DEOXYHEMOGLOBIN 3.1 % (0.0-5.0); BG HCO3 ACT 22.2 mmol/L (21.0-28.0); BG METHEMOGLOBIN 0.3 % (0.5-1.5); BG OXYGEN SATURATION 96.9 % (94.0-98.0); BG OXYHEMOGLOBIN 95.8 % (94.0-98.0); BG PCO2 36.5 mmHg (32.0-45.0); BG PH 7.402 (7.350-7.450); BG PO2 89.9 mmHg (83.0-108.0); BG SAMPLE SITE RIGHT RADIAL; BG TOTAL HEMOGLOBIN 9.2 g/dL (12.0-16.0); BG VENT MODE ROOM AIR
[2024-09-14 23:38] LABS: CLARITY URINE CLEAR (CLEAR); COLOR URINE YELLOW (YELLOW); GLUCOSE URINE NEGATIVE (NEGATIVE); KETONES URINE NEGATIVE (NEGATIVE); LEUKOCYTE ESTERASE URINE NEGATIVE (NEGATIVE); NITRITE URINE NEGATIVE (NEGATIVE); OCCULT BLOOD URINE NEGATIVE (NEGATIVE); PH URINE 7.5 (4.5-8.0); PROTEIN URINE NEGATIVE (NEGATIVE); SPECIFIC GRAVITY URINE 1.018 (1.005-1.030); UROBILINOGEN URINE 0.2 E.U./dL (0.2-1.0)
[2024-09-14 23:51] LABS: *AMPHETAMINES SCREEN URINE NEGATIVE (NEGATIVE); *BARBITURATES SCREEN URINE NEGATIVE (NEGATIVE); *BENZODIAZEPINES SCREEN URINE NEGATIVE (NEGATIVE); *COCAINE SCREEN URINE PRESUMPTIVE POSITIVE (NEGATIVE)
[2024-09-14 23:52] LABS: CANNABINOID URINE SCREEN NEGATIVE (NEGATIVE); ECSTASY MDMA SCREEN URINE NEGATIVE (NEGATIVE); METHADONE URINE SCREEN NEGATIVE (NEGATIVE); OPIATES URINE SCREEN NEGATIVE (NEGATIVE); PHENCYCLIDINE URINE SCREEN NEGATIVE (NEGATIVE)
[2024-09-15] VITALS (7 sets, daily range): BP systolic 75–192; BP diastolic 50–170; PULSE 85–107; RESP 17–26; TEMP 36.72516–36.9474; O2SAT 97–100
[2024-09-15] MEDS ORDERED: METH-371 PO (09:46)
[2024-09-15] MEDS ORDERED: ALBU18HF2 IH (09:46)
[2024-09-15] MEDS ORDERED: LISI-186 PO (09:46)
[2024-09-15] MEDS ORDERED: METH4TAB95 MT (09:46)
== END 2024-09-15 16:45 | disposition home or self-care (01) | DRG 871 ==
LOC: ER 16:49 → 5WST 18:00 → EDBEDREQ 18:05 → 3WST 09-13 20:06
PROVIDERS: ADMIT Internal Medicine; ATTEND Internal Medicine
DX: A41.9 Sepsis, unspecified organism (principal); I50.23 Acute on chronic systolic (congestive) heart failure; J96.01 Acute respiratory failure with hypoxia; J96.02 Acute respiratory failure with hypercapnia; J44.1 Chronic obstructive pulmonary disease with (acute) exacerbation; Z59.00 Homelessness unspecified; I11.0 Hypertensive heart disease with heart failure; D50.9 Iron deficiency anemia, unspecified; J44.9 Chronic obstructive pulmonary disease, unspecified; E05.90 Thyrotoxicosis, unspecified without thyrotoxic crisis or storm; G35 Multiple sclerosis; F14.10 Cocaine abuse, uncomplicated; J98.4 Other disorders of lung; L72.3 Sebaceous cyst; Z88.0 Allergy status to penicillin; Z88.2 Allergy status to sulfonamides; Z88.8 Allergy status to other drugs, medicaments and biological substances; Z79.899 Other long term (current) drug therapy; Z79.1 Long term (current) use of non-steroidal anti-inflammatories (NSAID); Z88.3 Allergy status to other anti-infective agents
CPT/HCPCS: 36415; 36600; 71045; 80048; 80305; 81003; 82375; 82607; 82728; 82746; 82805; 83540; 83550; 83880; 84439; 84443; 84484; 85025; 85027; 85044; 93005; 94640; 99285; J0696; J1650; J2919; J7030; J7512

== ENCOUNTER 2024-12-16 15:55 | Emergency (ER) | payer OTHER ==
[~2024-12-16] VITALS: Ht 162.6 cm; Wt 59.0 kg
[~2024-12-16 15:55] MED LIST changes: +ALBU18HF2 IH; +LISI-186 PO; +METH-371 PO; +METH4TAB95 MT
[2024-12-16 15:57] VITALS: O2SAT 98
[2024-12-16] MEDS: MAGNESIUM 2 G PREMIX 50 ML IV ONE (16:15)
[2024-12-16] MEDS: METHYLPREDNISOLONE SOD SUCC 125MG/2ML (ACT-O-VIAL) IV STA (16:55)
[2024-12-16 16:56] LABS: HEMATOCRIT. 26.6 % (36.0-48.0); HEMOGLOBIN. 8.4 g/dL (12.0-16.0); MEAN CORPUSCULAR HEMOGLOBIN 20.9 pg (28.0-32.0); MEAN CORPUSCULAR HGB CONC 31.6 g/dL (31.0-37.0); MEAN CORPUSCULAR VOLUME 66.2 fL (81.0-99.0); MEAN PLATELET VOLUME 8.5 fl (7.4-10.4); PLATELET 298 x1000/uL (130-400); RED BLOOD CELL COUNT 4.02 mill/uL (4.2-5.4); RED CELL DISTRIBUTION WIDTH 22.4 % (11.6-14.6); WHITE BLOOD COUNT 3.4 x1000/uL (4.5-11.0)
[2024-12-16 17:01] LABS: DIFFERENTIAL COMMENT 1
[2024-12-16 17:04] LABS: CHLORIDE 105 mEq/L (98-107); SODIUM 145 mEq/L (136-145)
[2024-12-16 17:05] LABS: CALCIUM 8.4 mg/dL (8.7-10.4); CARBON DIOXIDE 33 mEq/L (21-32)
[2024-12-16 17:07] LABS: INR 0.9; PARTIAL THROMBOPLASTIN TIME 24.6 sec (23.4-31.0); PROTHROMBIN TIME 10.5 sec (9.6-11.0)
[2024-12-16 17:10] LABS: CREATININE 0.5 mg/dL (0.6-1.0); GLUCOSE 103 mg/dL (70-105); UREA NITROGEN BLOOD 8 mg/dL (9-23)
[2024-12-16 17:12] LABS: TROPONIN I HIGH SENSITIVITY 6 ng/L (3.0-34)
[2024-12-16 17:22] LABS: POTASSIUM 2.8 mEq/L (3.5-5.1)
[2024-12-16 17:33] LABS: ANISOCYTOSIS 2+; HYPOCHROMASIA 2+; MICROCYTOSIS 3+; PLATELET ESTIMATE NORMAL
[2024-12-16 18:15] VITALS: PULSE 92; RESP 18
[2024-12-16] MEDS: IPRATROPIUM BROMIDE (0.02%) 0.5MG/2.5ML NEB HHN STA (18:15)
[2024-12-16] MEDS: ALBUTEROL (0.083%) 2.5MG/3ML NEB HHN SCH (18:16)
[2024-12-16 18:29] VITALS: PULSE 89; RESP 18
[2024-12-16 18:40] VITALS: PULSE 93; RESP 20
[2024-12-16] MEDS: KCL 20MEQ/100ML PREMIX 100 ML IV SCH (19:05)
[2024-12-16] MEDS ORDERED: GUAIFENESIN-DM 200MG-20MG/10ML UDC PO NR (21:00)
[2024-12-16] MEDS: GUAIFENESIN/CODEINE 200-20MG/10ML UDC PO ONE (21:09)
[2024-12-16 21:15] VITALS: TEMP 36.3
[2024-12-16 21:46] VITALS: BP 141/81; PULSE 104; RESP 16; O2SAT 96
== END 2024-12-16 21:48 | disposition short-term general hospital (02) ==
LOC: ER 15:55
DX: J44.1 Chronic obstructive pulmonary disease with (acute) exacerbation (principal); E87.6 Hypokalemia; Z79.899 Other long term (current) drug therapy; Z88.0 Allergy status to penicillin; Z88.1 Allergy status to other antibiotic agents; Z88.2 Allergy status to sulfonamides
CPT/HCPCS: 99291; 96365; 96366; 71045; 96367; 96375; 80048; 83880; 85025; 85610; 85730; 84484; 36415; 93005; 94640; 94070; J2919; J3475; J3480; A4606

== ENCOUNTER 2025-05-08 20:09 | Emergency (ER) | payer MEDICARE ==
[~2025-05-08] VITALS: Ht 165.1 cm; Wt 55.0 kg
[~2025-05-08 20:09] MED LIST changes: -LEVO-65 MT; -METH-371 MT
[2025-05-08] MEDS: METHYLPREDNISOLONE SOD SUCC 125MG/2ML (ACT-O-VIAL) IV ONE (20:44)
[2025-05-08 20:50] VITALS: PULSE 100; RESP 18; O2SAT 98
[2025-05-08 20:56] LABS: HEMATOCRIT. 32.9 % (36.0-48.0); HEMOGLOBIN. 9.7 g/dL (12.0-16.0); MEAN CORPUSCULAR HGB CONC 29.3 g/dL (31.0-37.0); MEAN CORPUSCULAR VOLUME 64.8 fL (81.0-99.0); MEAN PLATELET VOLUME 9.1 fl (7.4-10.4); PLATELET 156 x1000/uL (130-400); RED BLOOD CELL COUNT 5.08 mill/uL (4.2-5.4); RED CELL DISTRIBUTION WIDTH 24.2 % (11.6-14.6)
[2025-05-08] MEDS: IPRATROPIUM/ALBUTEROL 0.5-3(2.5)MG/3ML NEB HHN ONE (20:56)
[2025-05-08] MEDS: ALBUTEROL (0.083%) 2.5MG/3ML NEB HHN STA (20:56)
[2025-05-08 20:57] LABS: DIFFERENTIAL COMMENT 1
[2025-05-08 21:09] LABS: D-DIMER 0.5 mg/L FEU (<0.50); PARTIAL THROMBOPLASTIN TIME 25.6 sec (23.4-31.0); PROTHROMBIN TIME 10.3 sec (9.6-11.0)
[2025-05-08 21:17] LABS: CHLORIDE 107 mEq/L (98-107); POTASSIUM 4.1 mEq/L (3.5-5.1); SODIUM 145 mEq/L (136-145)
[2025-05-08 21:18] LABS: ANISOCYTOSIS 2+; CALCIUM 9.8 mg/dL (8.7-10.4); CARBON DIOXIDE 29 mEq/L (21-32); HYPOCHROMASIA 2+; MICROCYTOSIS 3+; PLATELET ESTIMATE NORMAL
[2025-05-08 21:23] LABS: CREATININE 0.5 mg/dL (0.6-1.0); GLUCOSE 122 mg/dL (70-105); UREA NITROGEN BLOOD 11 mg/dL (9-23)
[2025-05-08 21:25] LABS: TROPONIN I HIGH SENSITIVITY < 4 ng/L (3.0-34)
[2025-05-08 22:15] LABS: INFLUENZA TYPE A Presumptive Negative (Pres. Neg.); INFLUENZA TYPE B Presumptive Negative (Pres. Neg.)
[2025-05-09 01:35] VITALS: BP 115/47; PULSE 113; RESP 25; TEMP 37; O2SAT 100
== END 2025-05-09 01:35 | disposition short-term general hospital (02) ==
LOC: ER 20:44 → EDBEDREQTM 22:35 → EDBEDREQ 22:35 → ER 05-09 01:35
DX: J44.1 Chronic obstructive pulmonary disease with (acute) exacerbation (principal); Z79.899 Other long term (current) drug therapy; Z88.0 Allergy status to penicillin; Z88.1 Allergy status to other antibiotic agents; Z88.2 Allergy status to sulfonamides; Z20.822 Contact with and (suspected) exposure to COVID-19
CPT/HCPCS: 99285; 96374; 71045; 87426; 80048; 83880; 85025; 85379; 85610; 85730; 84484; 87804 ×2; 36415; 94640; 93005; 98960; J2919; 94070

== ENCOUNTER 2025-07-10 22:48 | Emergency (ER) | payer MEDICARE, OTHER ==
[~2025-07-10] VITALS: Ht 162.6 cm; Wt 50.0 kg
[2025-07-10] MEDS: ALBUTEROL (0.083%) 2.5MG/3ML NEB HHN ONE (23:48)
[2025-07-10 23:49] VITALS: PULSE 95; RESP 26; O2SAT 98
[2025-07-10] MEDS: IPRATROPIUM BROMIDE (0.02%) 0.5MG/2.5ML NEB HHN ONE (23:49)
[2025-07-11 00:27] LABS: HEMATOCRIT. 37.6 % (36.0-48.0); HEMOGLOBIN. 11.6 g/dL (12.0-16.0); RED BLOOD CELL COUNT 5.25 mill/uL (4.2-5.4); RED CELL DISTRIBUTION WIDTH 23.2 % (11.6-14.6)
[2025-07-11 00:33] LABS: INR 1.0
[2025-07-11 00:37] LABS: CREATININE 0.5 mg/dL (0.6-1.0); UREA NITROGEN BLOOD 14 mg/dL (9-23)
[2025-07-11 00:38] LABS: ETHANOL BLOOD < 10 mg/dL (<10); TROPONIN I HIGH SENSITIVITY 5 ng/L (3.0-34)
[2025-07-11] MEDS: METHYLPREDNISOLONE SOD SUCC 125MG/2ML (ACT-O-VIAL) IV ONE (01:21)
[2025-07-11 02:30] VITALS: TEMP 36.7
[2025-07-11 04:55] VITALS: BP 141/48; PULSE 94; RESP 25; O2SAT 95
[2025-07-11 06:52] LABS: EOSINOPHILS % MANUAL 3.0 % (0.0-5.0); LYMPHOCYTES % MANUAL 53.0 % (20.0-60.0); MONOCYTES % MANUAL 13.0 % (2.0-8.0); NEUTROPHILS % MANUAL 31.0 % (45.0-75.0); PLATELET ESTIMATE NORMAL
[2025-07-11 06:53] LABS: PLATELET 130 x1000/uL (130-400)
== END 2025-07-11 05:11 | disposition short-term general hospital (02) ==
LOC: ER 22:48 → CMPBEDREQ 07-11 12:46
DX: J44.1 Chronic obstructive pulmonary disease with (acute) exacerbation (principal); Z79.899 Other long term (current) drug therapy; Z87.11 Personal history of peptic ulcer disease; Z88.0 Allergy status to penicillin; Z88.1 Allergy status to other antibiotic agents; Z88.2 Allergy status to sulfonamides; Z20.822 Contact with and (suspected) exposure to COVID-19
CPT/HCPCS: 36415; 71045; 94640; 93005; 99285; 80048; 80320; 83880; 85025; 85610; 85730; 84484; 96374; 87426; J2919; 94070; G0480

== ENCOUNTER 2025-10-09 23:57 | Inpatient (IN) | payer OTHER, MEDICARE ==
[~2025-10-09] VITALS: Ht 160 cm; Wt 51.3 kg
[2025-10-10] VITALS (16 sets, daily range): BP systolic 101–154; BP diastolic 50–101; PULSE 77–120; RESP 15–36; TEMP 36.3–37.252; O2SAT 93–99
[2025-10-10] MEDS: METHYLPREDNISOLONE SOD SUCC 125MG/2ML (ACT-O-VIAL) IV ONE (00:48)
[2025-10-10] MEDS: LEVOFLOXACIN 750MG PREMIX 150 ML IV ONE (00:48)
[2025-10-10] MEDS: SODIUM CHLORIDE 0.9% (SEPSIS BOLUS) IV ONE (00:49)
[2025-10-10 01:16] LABS: CREATININE 0.5 mg/dL (0.6-1.0); UREA NITROGEN BLOOD 15 mg/dL (9-23)
[2025-10-10 01:17] LABS: TROPONIN I HIGH SENSITIVITY 6 ng/L (3.0-34)
[2025-10-10 01:18] LABS: ASPARTATE AMINOTRANSFERASE 23 IU/L (<34); BILIRUBIN DIRECT 0.2 mg/dL (<=3.0)
[2025-10-10 01:19] LABS: BILIRUBIN TOTAL 0.6 mg/dL (0.1-1.0); PROTEIN TOTAL 6.5 g/dL (6.0-8.3)
[2025-10-10 01:53] LABS: INR 0.9
[2025-10-10 02:16] LABS: BG BASE EXCESS -1.0 mmol/L (-2.0-3.0); BG CARBOXYHEMOGLOBIN 2.5 % (0.5-1.5); BG DEOXYHEMOGLOBIN 2.7 % (0.0-5.0); BG FRACTION INSPIRED OXYGEN 32; BG HCO3 ACT 24.3 mmol/L (21.0-28.0); BG METHEMOGLOBIN 0.3 % (0.5-1.5); BG OXYGEN SATURATION 97.2 % (94.0-98.0); BG OXYHEMOGLOBIN 94.5 % (94.0-98.0); BG PCO2 43.1 mmHg (32.0-45.0); BG PH 7.369 (7.350-7.450); BG PO2 93.6 mmHg (83.0-108.0); BG SAMPLE SITE RIGHT RADIAL; BG TOTAL HEMOGLOBIN 10.5 g/dL (12.0-16.0); BG VENT MODE NASAL CANNULA
[2025-10-10] MEDS: ALBUTEROL (0.083%) 2.5MG/3ML NEB HHN SCH (02:18)
[2025-10-10] MEDS: IPRATROPIUM BROMIDE (0.02%) 0.5MG/2.5ML NEB HHN SCH (02:19)
[2025-10-10 02:21] LABS: BASOPHILS % 0.6 % (0.0-2.0); EOSINOPHILS % 9.9 % (0.0-5.0); HEMATOCRIT. 37.0 % (36.0-48.0); HEMOGLOBIN. 11.7 g/dL (12.0-16.0); LYMPHOCYTES % 29.6 % (20.0-50.0); MEAN PLATELET VOLUME 10.6 fl (7.4-10.4); MONOCYTES % 11.4 % (2.0-8.0); NEUTROPHILS % 48.5 % (40.0-76.0); PLATELET 202 x1000/uL (130-400); RED BLOOD CELL COUNT 5.04 mill/uL (4.2-5.4); RED CELL DISTRIBUTION WIDTH 18.2 % (11.6-14.6)
[2025-10-10 03:55] LABS: CLARITY URINE CLEAR (CLEAR); COLOR URINE YELLOW (YELLOW); GLUCOSE URINE NEGATIVE (NEGATIVE); KETONES URINE NEGATIVE (NEGATIVE); LEUKOCYTE ESTERASE URINE NEGATIVE (NEGATIVE); NITRITE URINE NEGATIVE (NEGATIVE); OCCULT BLOOD URINE NEGATIVE (NEGATIVE); PH URINE 7.0 (4.5-8.0); PROTEIN URINE NEGATIVE (NEGATIVE); SPECIFIC GRAVITY URINE 1.019 (1.005-1.030); UROBILINOGEN URINE 1.0 E.U./dL (0.2-1.0)
[2025-10-10] MEDS: ACETAMINOPHEN 325MG TABLET PO PRN ×2 (05:12→22:34)
[2025-10-10] MEDS: METHYLPREDNISOLONE SOD SUCC 40MG/ML (ACT-O-VIAL) IV SCH (05:13)
[2025-10-10] MEDS ORDERED: ACETAMINOPHEN 325MG TABLET PO PRN ×2 (05:15→12:30)
[2025-10-10] MEDS: METHIMAZOLE 5MG TABLET PO SCH (08:21)
[2025-10-10] MEDS: MONTELUKAST SODIUM 10MG TABLET PO SCH (08:21)
[2025-10-10] MEDS ORDERED: DOCUSATE SODIUM 100MG CAPSULE PO PRN (12:30)
[2025-10-10] MEDS ORDERED: ONDANSETRON HCL 4MG/2ML INJ IV PRN (12:30)
[2025-10-10] MEDS ORDERED: CLONIDINE 0.1MG TABLET PO PRN (12:30)
[2025-10-10] MEDS ORDERED: IPRATROPIUM/ALBUTEROL 0.5-3(2.5)MG/3ML NEB HHN PRN (12:30)
[2025-10-10] MEDS: IPRATROPIUM/ALBUTEROL 0.5-3(2.5)MG/3ML NEB HHN SCH (12:45)
[2025-10-10] MEDS: BUDESONIDE 0.5MG/2ML NEB HHN SCH (12:45)
[2025-10-10] MEDS: FAMOTIDINE 20MG/2ML VIAL IV SCH (15:51)
[2025-10-10] MEDS: ENOXAPARIN 30MG/0.3ML SYR SUBCUT SCH (15:52)
[2025-10-10] MEDS: GUAIFENESIN 200MG/10ML SUGAR FREE UDC PO PRN (15:56)
[2025-10-10 17:10] LABS: CREATINE KINASE MB FRACTION 1.7 ng/mL (0.5-3.6); TROPONIN I HIGH SENSITIVITY < 4 ng/L (3.0-34)
[2025-10-10] MEDS: METOPROLOL TARTRATE 25MG TABLET PO SCH (22:33)
[2025-10-11] VITALS (15 sets, daily range): BP systolic 102–137; BP diastolic 47–120; PULSE 71–94; RESP 16–37; TEMP 36.3–36.8; O2SAT 91–100
[2025-10-11 02:23] LABS: TROPONIN I HIGH SENSITIVITY 5 ng/L (3.0-34)
[2025-10-11] MEDS: ZOLPIDEM TARTRATE 5MG TABLET PO PRN (02:57)
[2025-10-11 06:57] LABS: CREATININE 0.5 mg/dL (0.6-1.0); UREA NITROGEN BLOOD 18 mg/dL (9-23)
[2025-10-11 06:58] LABS: BASOPHILS % 0.3 % (0.0-2.0); EOSINOPHILS % 0.0 % (0.0-5.0); HEMATOCRIT. 34.0 % (36.0-48.0); HEMOGLOBIN. 10.8 g/dL (12.0-16.0); LYMPHOCYTES % 7.5 % (20.0-50.0); MEAN PLATELET VOLUME 10.6 fl (7.4-10.4); MONOCYTES % 6.1 % (2.0-8.0); NEUTROPHILS % 86.1 % (40.0-76.0); PLATELET 196 x1000/uL (130-400); RED BLOOD CELL COUNT 4.58 mill/uL (4.2-5.4); RED CELL DISTRIBUTION WIDTH 18.5 % (11.6-14.6)
[2025-10-11 06:59] LABS: PHOSPHORUS 3.0 mg/dL (2.5-4.9)
[2025-10-11] MEDS: ASPIRIN 81MG TABLET PO SCH (09:18)
[2025-10-11] MEDS: METHYLPREDNISOLONE SOD SUCC 40MG/ML (ACT-O-VIAL) IV SCH (09:24)
[2025-10-11 13:18] LABS: T4 FREE 2.26 ng/dL (0.89-1.76)
[2025-10-11 13:19] LABS: *AMPHETAMINES SCREEN URINE NEGATIVE (NEGATIVE); *BARBITURATES SCREEN URINE NEGATIVE (NEGATIVE); *BENZODIAZEPINES SCREEN URINE NEGATIVE (NEGATIVE); *COCAINE SCREEN URINE PRESUMPTIVE POSITIVE (NEGATIVE); CANNABINOID URINE SCREEN NEGATIVE (NEGATIVE); ECSTASY MDMA SCREEN URINE NEGATIVE (NEGATIVE); METHADONE URINE SCREEN NEGATIVE (NEGATIVE); OPIATES URINE SCREEN NEGATIVE (NEGATIVE); PHENCYCLIDINE URINE SCREEN NEGATIVE (NEGATIVE)
[2025-10-11] MEDS: MAGNESIUM 2 G PREMIX 50 ML IV SCH (14:32)
[2025-10-11] MEDS: MONTELUKAST SODIUM 10MG TABLET PO SCH (18:52)
[2025-10-12] VITALS (9 sets, daily range): BP systolic 65–134; BP diastolic 45–80; PULSE 68–133; RESP 18–27; TEMP 36.4–36.9; O2SAT 93–100
[2025-10-12] MEDS ORDERED: P20 MT (10:09)
[2025-10-12] MEDS ORDERED: METH-371 PO (10:09)
[2025-10-12] MEDS ORDERED: FLUT1DIS3 INH (10:09)
[2025-10-12] MEDS ORDERED: ALBU18HF2 IH (10:09)
[2025-10-12] MEDS ORDERED: IPRA3AMP9 NEB (10:09)
[2025-10-12 14:54] LABS: BG BASE EXCESS 0.2 mmol/L (-2.0-3.0); BG CARBOXYHEMOGLOBIN 0.5 % (0.5-1.5); BG DEOXYHEMOGLOBIN 2.8 % (0.0-5.0); BG FRACTION INSPIRED OXYGEN 21; BG HCO3 ACT 24.6 mmol/L (21.0-28.0); BG METHEMOGLOBIN 0.3 % (0.5-1.5); BG OXYGEN SATURATION 97.2 % (94.0-98.0); BG OXYHEMOGLOBIN 96.4 % (94.0-98.0); BG PCO2 39.3 mmHg (32.0-45.0); BG PH 7.415 (7.350-7.450); BG PO2 92.3 mmHg (83.0-108.0); BG SAMPLE SITE RIGHT BRACHIAL; BG TOTAL HEMOGLOBIN 12.1 g/dL (12.0-16.0); BG VENT MODE ROOM AIR
== END 2025-10-12 19:20 | disposition home or self-care (01) | DRG 189 ==
LOC: ER 23:57 → 5EST 10-10 01:53 → EDBEDREQTM 10-10 01:55 → EDBEDREQ 10-10 01:55 → ENRESERV 10-10 02:30 → 8WST 10-12 10:38
PROVIDERS: ADMIT Internal Medicine; ATTEND Internal Medicine
DX: J96.01 Acute respiratory failure with hypoxia (principal); J44.1 Chronic obstructive pulmonary disease with (acute) exacerbation; Z59.00 Homelessness unspecified; D50.9 Iron deficiency anemia, unspecified; E05.90 Thyrotoxicosis, unspecified without thyrotoxic crisis or storm; F14.10 Cocaine abuse, uncomplicated; I10 Essential (primary) hypertension; E83.42 Hypomagnesemia; K29.70 Gastritis, unspecified, without bleeding; R00.0 Tachycardia, unspecified; K21.9 Gastro-esophageal reflux disease without esophagitis; Z79.899 Other long term (current) drug therapy; Z87.891 Personal history of nicotine dependence; Z88.0 Allergy status to penicillin; Z88.2 Allergy status to sulfonamides; Z88.3 Allergy status to other anti-infective agents; Z88.8 Allergy status to other drugs, medicaments and biological substances
CPT/HCPCS: 36415; 36600; 71045; 78580; 80048; 80076; 80305; 81003; 82375; 82550; 82553; 82805; 83605; 83735; 83880; 84100; 84145; 84439; 84443; 84484; 85025; 85379; 93005; 93970; 94070; 94640; 94664; 96365; 96375; 98960; 99291; A4606; J1308; J1650; J1956; J2919; J3475; J7030; J7626

== ENCOUNTER 2025-11-02 06:51 | Inpatient (IN) | payer MEDICARE, OTHER ==
[~2025-11-02] VITALS: Ht 160 cm; Wt 59.0 kg
[~2025-11-02 06:51] MED LIST changes: +FLUT1DIS3 INH; +IPRA3AMP9 NEB; -METH4TAB95 MT; +P20 MT
[2025-11-02] MEDS: METHYLPREDNISOLONE SOD SUCC 125MG/2ML (ACT-O-VIAL) IV ONE (08:23)
[2025-11-02 08:40] VITALS: PULSE 95; RESP 20; O2SAT 95
[2025-11-02] MEDS: ALBUTEROL (0.083%) 2.5MG/3ML NEB HHN SCH (08:40)
[2025-11-02] MEDS: IPRATROPIUM BROMIDE (0.02%) 0.5MG/2.5ML NEB HHN SCH (08:40)
[2025-11-02 08:56] LABS: BASOPHILS % 0.8 % (0.0-2.0); EOSINOPHILS % 10.6 % (0.0-5.0); HEMATOCRIT. 34.8 % (36.0-48.0); HEMOGLOBIN. 10.8 g/dL (12.0-16.0); LYMPHOCYTES % 32.8 % (20.0-50.0); MEAN PLATELET VOLUME 8.6 fl (7.4-10.4); MONOCYTES % 12.3 % (2.0-8.0); NEUTROPHILS % 43.5 % (40.0-76.0); PLATELET 177 x1000/uL (130-400); RED BLOOD CELL COUNT 4.66 mill/uL (4.2-5.4); RED CELL DISTRIBUTION WIDTH 17.7 % (11.6-14.6)
[2025-11-02 09:06] LABS: CREATININE 0.5 mg/dL (0.6-1.0); UREA NITROGEN BLOOD 16 mg/dL (9-23)
[2025-11-02 09:08] LABS: TROPONIN I HIGH SENSITIVITY 4 ng/L (3.0-34)
[2025-11-02 12:00] VITALS: BP 130/60; PULSE 105; RESP 19; TEMP 36.7; O2SAT 99
[2025-11-02 15:13] VITALS: BP 130/76; PULSE 105; RESP 19; TEMP 36.696
[2025-11-02 16:00] VITALS: BP 141/56; PULSE 107; RESP 16; TEMP 35.9; O2SAT 96
[2025-11-02] MEDS: GUAIFENESIN-DM 200MG-20MG/10ML UDC PO PRN (18:25)
[2025-11-02 20:00] VITALS: BP 138/64; PULSE 91; RESP 18; TEMP 36.9; O2SAT 97
[2025-11-02] MEDS: IPRATROPIUM/ALBUTEROL 0.5-3(2.5)MG/3ML NEB HHN PRN (20:04)
[2025-11-02 20:08] VITALS: PULSE 98; RESP 18; O2SAT 82
[2025-11-02] MEDS: IPRATROPIUM/ALBUTEROL 0.5-3(2.5)MG/3ML NEB HHN SCH (20:08)
[2025-11-02] MEDS ORDERED: IPRATROPIUM/ALBUTEROL 0.5-3(2.5)MG/3ML NEB HHN PRN (20:15)
[2025-11-02] MEDS ORDERED: ONDANSETRON HCL 4MG/2ML INJ IV PRN (20:15)
[2025-11-02] MEDS ORDERED: DIPHENHYDRAMINE 50MG/ML VIAL IV PRN (20:15)
[2025-11-02] MEDS ORDERED: CLONIDINE 0.1MG TABLET PO PRN (20:15)
[2025-11-02] MEDS ORDERED: MAGNESIUM/ALUMINUM HYDROXIDE/SIMETHICONE 30ML UDC PO PRN (20:15)
[2025-11-02] MEDS ORDERED: ACETAMINOPHEN 325MG TABLET PO PRN ×2 (20:15)
[2025-11-02] MEDS: SODIUM CHLORIDE 0.9% 3ML FLUSH IVF SCH (22:06)
[2025-11-02] MEDS: GUAIFENESIN 200MG/10ML SUGAR FREE UDC PO PRN (23:31)
[2025-11-03] VITALS (10 sets, daily range): BP systolic 107–145; BP diastolic 53–81; PULSE 72–92; RESP 14–20; TEMP 36.2–36.5; O2SAT 95–98
[2025-11-03] MEDS: PREDNISONE 20MG TABLET PO SCH (09:26)
[2025-11-03] MEDS: FERROUS SULFATE 325MG TABLET PO SCH (09:27)
[2025-11-03] MEDS: METHIMAZOLE 5MG TABLET PO SCH (09:27)
[2025-11-03] MEDS: LISINOPRIL 5MG TABLET PO SCH (09:31)
[2025-11-03] MEDS ORDERED: IPRA3AMP9 NEB (17:24)
[2025-11-03] MEDS ORDERED: FLUT1DIS3 INH (17:24)
[2025-11-03] MEDS ORDERED: FERR325T6 MT (17:24)
[2025-11-03] MEDS ORDERED: METH-371 PO (17:24)
[2025-11-03] MEDS ORDERED: P20 MT (17:24)
[2025-11-03] MEDS ORDERED: ALBU18HF2 IH (17:24)
[2025-11-03] MEDS ORDERED: LISI-186 PO (17:24)
[2025-11-03] MEDS ORDERED: TOPUD MT (17:24)
[2025-11-03] MEDS: ZOLPIDEM TARTRATE 5MG TABLET PO PRN (21:38)
[2025-11-04] VITALS (10 sets, daily range): BP systolic 95–131; BP diastolic 18–80; PULSE 78–95; RESP 16–20; TEMP 36–37; O2SAT 96–99
[2025-11-04 08:21] LABS: CLARITY URINE CLEAR (CLEAR); COLOR URINE YELLOW (YELLOW); GLUCOSE URINE NEGATIVE (NEGATIVE); KETONES URINE NEGATIVE (NEGATIVE); LEUKOCYTE ESTERASE URINE NEGATIVE (NEGATIVE); NITRITE URINE NEGATIVE (NEGATIVE); OCCULT BLOOD URINE NEGATIVE (NEGATIVE); PH URINE 6.0 (4.5-8.0); PROTEIN URINE NEGATIVE (NEGATIVE); SPECIFIC GRAVITY URINE 1.019 (1.005-1.030); UROBILINOGEN URINE 0.2 E.U./dL (0.2-1.0)
[2025-11-04 08:56] LABS: *AMPHETAMINES SCREEN URINE NEGATIVE (NEGATIVE); *BARBITURATES SCREEN URINE NEGATIVE (NEGATIVE); *BENZODIAZEPINES SCREEN URINE NEGATIVE (NEGATIVE); *COCAINE SCREEN URINE PRESUMPTIVE POSITIVE (NEGATIVE); CANNABINOID URINE SCREEN NEGATIVE (NEGATIVE); ECSTASY MDMA SCREEN URINE NEGATIVE (NEGATIVE); METHADONE URINE SCREEN NEGATIVE (NEGATIVE); OPIATES URINE SCREEN NEGATIVE (NEGATIVE); PHENCYCLIDINE URINE SCREEN NEGATIVE (NEGATIVE)
[2025-11-05] VITALS (8 sets, daily range): BP systolic 95–128; BP diastolic 48–57; PULSE 76–91; RESP 18–21; TEMP 35.8–36.6; O2SAT 98–100
[2025-11-05] MEDS ORDERED: METH-371 PO (17:52)
[2025-11-05] MEDS ORDERED: LISI-186 PO (17:52)
[2025-11-05] MEDS ORDERED: IPRA3AMP9 NEB (17:52)
[2025-11-05] MEDS ORDERED: ALBU18HF2 IH (17:52)
[2025-11-05] MEDS ORDERED: P20 PO (17:52)
[2025-11-05] MEDS ORDERED: FLUT1DIS3 INH (17:52)
[2025-11-05] MEDS ORDERED: FERR325T6 PO (17:52)
[2025-11-05] MEDS ORDERED: TOPUD PO (17:52)
== END 2025-11-05 18:22 | disposition home or self-care (01) | DRG 189 ==
LOC: ER 06:51 → 6WST 10:22 → EDBEDREQTM 10:24 → EDBEDREQ 10:24 → ENRESERV 13:11
PROVIDERS: ADMIT Internal Medicine; ATTEND Internal Medicine
DX: J96.01 Acute respiratory failure with hypoxia (principal); Z59.02 Unsheltered homelessness; J44.1 Chronic obstructive pulmonary disease with (acute) exacerbation; I10 Essential (primary) hypertension; E05.90 Thyrotoxicosis, unspecified without thyrotoxic crisis or storm; F14.10 Cocaine abuse, uncomplicated; D64.9 Anemia, unspecified; K21.9 Gastro-esophageal reflux disease without esophagitis; F17.210 Nicotine dependence, cigarettes, uncomplicated; Z88.0 Allergy status to penicillin; Z88.2 Allergy status to sulfonamides; Z88.3 Allergy status to other anti-infective agents
CPT/HCPCS: 36415; 71045; 80048; 80305; 81003; 83880; 84484; 85025; 93005; 94070; 94640; 94664; 99285; J2919; J7512